=== PATIENT | male | born 1940 | race African-American/Black ===

== ENCOUNTER 2024-09-15 12:52 | Emergency (ER) | payer MEDICARE, MEDICAID ==
[~2024-09-15] VITALS: Ht 188 cm; Wt 102.0 kg
[~2024-09-15 12:52] MED LIST: ALBU90AE INH; APIX5TAB PO; ASPI-1497 PO; BENZ200C52 PO; CYAN50007 PO; ERGO1250; FOLI-43 PO; MEMA10TA20 PO; NIFE10CA59; QUET50TA PO; RIVA1.5C30 PO; TAMS-54 PO; [UNRECOGNIZED DRUG - CODE]
[2024-09-15 12:56] VITALS: O2SAT 99
[2024-09-15] MEDS: SODIUM CHLORIDE 0.9% 500 ML IV ONE (13:15)
[2024-09-15 13:47] LABS: BASOPHILS % 1.2 % (0.0-2.0); EOSINOPHILS % 4.8 % (0.0-5.0); HEMATOCRIT. 38.7 % (42.0-52.0); HEMOGLOBIN. 12.1 g/dL (14.0-18.0); LYMPHOCYTES % 37.6 % (20.0-50.0); MEAN PLATELET VOLUME 7.9 fl (7.4-10.4); MONOCYTES % 11.1 % (2.0-8.0); NEUTROPHILS % 45.3 % (40.0-76.0); PLATELET 210 x1000/uL (130-400); RED BLOOD CELL COUNT 4.60 mill/uL (4.7-6.1); RED CELL DISTRIBUTION WIDTH 14.9 % (11.6-14.6)
[2024-09-15 14:03] LABS: CREATININE 1.0 mg/dL (0.6-1.3)
[2024-09-15 14:04] LABS: TROPONIN I HIGH SENSITIVITY 9 ng/L (3.0-53); UREA NITROGEN BLOOD 14 mg/dL (9-23)
[2024-09-15 15:05] VITALS: BP 119/68; PULSE 59; RESP 15; TEMP 36.9; O2SAT 97
[2024-09-15 15:08] LABS: CLARITY URINE CLEAR (CLEAR); COLOR URINE YELLOW (YELLOW); GLUCOSE URINE NEGATIVE (NEGATIVE); KETONES URINE NEGATIVE (NEGATIVE); LEUKOCYTE ESTERASE URINE NEGATIVE (NEGATIVE); NITRITE URINE NEGATIVE (NEGATIVE); OCCULT BLOOD URINE NEGATIVE (NEGATIVE); PH URINE 7.0 (4.5-8.0); PROTEIN URINE NEGATIVE (NEGATIVE); SPECIFIC GRAVITY URINE 1.006 (1.005-1.030); UROBILINOGEN URINE 0.2 E.U./dL (0.2-1.0)
== END 2024-09-15 15:26 | disposition home or self-care (01) ==
LOC: ER 12:52 → CANBEDREQ 14:41 → ER 15:26
DX: R41.82 Altered mental status, unspecified (principal); G30.9 Alzheimer's disease, unspecified; I10 Essential (primary) hypertension; J44.9 Chronic obstructive pulmonary disease, unspecified; F41.9 Anxiety disorder, unspecified; I48.91 Unspecified atrial fibrillation; N28.9 Disorder of kidney and ureter, unspecified; Z79.899 Other long term (current) drug therapy; Z79.82 Long term (current) use of aspirin
CPT/HCPCS: 99284; 96360; 70450; 71045; 80048; 81003; 82140; 85025; 84484; 36415; J7030